=== PATIENT | male | born 1990 | race Two or more races ===

== ENCOUNTER 2017-11-15 15:29 | Outpatient (CLI) | payer BC ==
--- NOTE | 2017-11-15 17:06 | RAD ---
CERVICAL SPINE 3 VIEWS: Date: 11/15/17 HISTORY: Cervicalgia. Neck pain. FINDINGS: Cervical vertebra maintain normal height and alignment. Disc spaces are normally maintained. Posterio r elements are normally aligned. IMPRESSION: Unremarkable cervical spine. POS: [email or web address]
== END 2017-11-15 15:30 | disposition home or self-care (01) ==
LOC: BICRAD 15:29
PROVIDERS: ATTEND Family Medicine
DX: M54.2 Cervicalgia (principal)
CPT/HCPCS: 72040

== ENCOUNTER 2023-01-28 13:37 | Outpatient (CLI) | payer BC | END 2023-01-28 13:38 | disposition home or self-care (01) | LOC: BICRAD 13:37 | PROVIDERS: ATTEND Family Medicine | DX: R05.9 Cough, unspecified (principal) | CPT/HCPCS: 70220; 71046 ==